=== PATIENT | male | born 1980 | race Caucasian/White ===

== ENCOUNTER 2021-09-05 04:07 | Observation (INO) ==
[2021-09-05] MEDS ORDERED: HYDROmorphone 1 MG/1 ML SYRINGE IV STA (04:18)
[2021-09-05] MEDS ORDERED: KETOROLAC 30 MG/1 ML VIAL IV STA (04:18)
[2021-09-05] MEDS ORDERED: ONDANSETRON 4 MG/2 ML VIAL IV STA (04:18)
[2021-09-05] MEDS ORDERED: SODIUM CHLORIDE 0.9% 1,000 ML IV STA (04:18)
[2021-09-05 04:44] LABS: Basophils % 0.3 % (0.0-0.8); Eosinophils # 0.1 10*3/uL (0.0-0.87); Eosinophils % 1.8 % (0.00-10.9); Hematocrit 39.8 VOL% (42.0-52.0); Hemoglobin 13.6 GM/DL (14.0-18.0); Immature Granulocytes % 0.3 %; Immature Granulocytes Absolute 0.02 #; Lymphocytes # 2.6 10*3/uL (1.4-4.0); Lymphocytes % 35.3 % (21.2-54.2); Mean Corpuscular HGB Conc 34.2 GM/DL (32-36); Mean Corpuscular Volume 85.8 FL (87-102); Mean Platelet Volume 11.8 FL (9.6-12.0); Monocytes # 0.7 10*3/uL (0.11-0.8); Monocytes % 8.9 % (1.7-12.7); Neutrophils % 53.4 % (38.7-73.9); Platelet Count 209 T/CUMM (130-400); Red Blood Count 4.64 MC/CUMM (3.8-5.5); Red Cell Distribution Width 11.9 % (9.3-17.3); White Blood Count 7.3 T/CUMM (4-12)
[2021-09-05 05:20] LABS: Albumin 4.3 G/DL (3.4-5.0); Bilirubin,Total 1.2 MG/DL (0.20-1.00); Calcium 9.3 MG/DL (8.5-10.1); Osmolality,Calculated 272.1 MOS/KG (273-304); Potassium 3.7 MMOL/L (3.5-5.1); Total Protein 8.2 G/DL (6.4-8.2)
[2021-09-05] MEDS ORDERED: MORPHINE 2 MG/1 ML SYRINGE IV STA (05:29)
[2021-09-05] MEDS ORDERED: ASPIRIN CHEW 81 MG TABLET PO STA (05:29)
[2021-09-05] MEDS ORDERED: NITROGLYCERIN 2% OINT 1 INCH/GM PACK TOP STA (05:29)
[2021-09-05] MEDS ORDERED: NITROGLYCERIN 2% OINT 1 INCH/GM PACK TOP ONE (05:33)
[2021-09-05] MEDS ORDERED: MORPHINE 2 MG/1 ML SYRINGE ONE (05:33)
[2021-09-05] MEDS ORDERED: ASPIRIN 325 MG TABLET ONE (05:33)
[2021-09-05] MEDS ORDERED: LORazepam 2 MG/1 ML VIAL IV STA (05:41)
[2021-09-05] MEDS ORDERED: GLUCAGON 1 MG VIAL IM PRN (06:18)
[2021-09-05] MEDS ORDERED: ONDANSETRON 4 MG/2 ML VIAL IV PRN (06:18)
[2021-09-05] MEDS ORDERED: hydrALAZINE 20 MG/1 ML VIAL IV PRN (06:18)
[2021-09-05] MEDS ORDERED: KETOROLAC 15 MG/1 ML VIAL IV PRN (06:18)
[2021-09-05] MEDS ORDERED: MORPHINE 2 MG/1 ML SYRINGE IV PRN (06:18)
[2021-09-05] MEDS ORDERED: ACETAMINOPHEN 325 MG TABLET PO PRN (06:18)
[2021-09-05] MEDS ORDERED: DEXTROSE 10% 25 GM/250 ML BAG IV PRN (06:18)
[2021-09-05] MEDS ORDERED: SODIUM CHLORIDE 0.9% 1,000 ML IV SCH (06:30)
[2021-09-05 07:21] LABS: Mucus,Urine Occasional /LPF (Occasional); RBC,Urine 382 /HPF (0-4); Sperm,Urine Occasional /HPF (Negative)
[2021-09-05 07:23] LABS: Bilirubin,Urine Negative (Negative); Blood, Urine Large mg/dL (Negative); Glucose,Urine (UA) Negative (Negative); Ketones,Urine Negative (Negative); Nitrite,Urine Negative (Negative); Protein,Urine 100 mg/dL (Negative); Urine Appearance Slightly Cloudy (Clear); Urine Color Dark yellow (Yellow); Urine Specific Gravity >= 1.030 (1.001-1.035); Urine Urobilinogen 0.2 eU/dL (<2.0)
[2021-09-05 08:06] LABS: Risk Ratio 5.38; Thyroid Stimulating Hormone 2.79 uIU/ml (0.358-3.74); VLDL Cholesterol 51.6 MG/DL
[2021-09-05] MEDS ORDERED: PANTOPRAZOLE 40 MG TABLET PO SCH (09:00)
[2021-09-05 09:32] LABS: Barbiturates Screen,Urine Negative (Negative); Benzodiazepines Screen,Urine Negative (Negative); Cannabinoid Screen,Urine Negative (Negative); Opiate Screen,Urine Positive (Negative); Phencyclidine Screen,Urine Negative (Negative)
[2021-09-05 14:14] VITALS: BP 115/67
[2021-09-05] MEDS ORDERED: ENOXAPARIN 40 MG/0.4 ML SYRINGE SUBCUT SCH (21:00)
[2021-09-06] MEDS ORDERED: ASPIRIN EC 325 MG TABLET PO SCH (09:00)
== END 2021-09-05 13:30 | disposition home or self-care (01) ==
LOC: N.EDINP 04:07 → N.ED 04:07 → N.EDINP 13:35
PROVIDERS: ADMIT Internal Medicine Geriatric Medicine; ATTEND Internal Medicine Geriatric Medicine